=== PATIENT | female | born 1990 | race Caucasian/White ===

== ENCOUNTER → 2018-10-08 08:28 | Outpatient (CLI) | payer BC, SELFPAY ==
[2018-10-08 10:42] LABS: Hemoglobin A1c 5.7 % (4.2-6.3)
[2018-10-08 11:07] LABS: Ferritin 51 ng/mL (8-252); Thyroid Stim Hormone (TSH) 1.65 uIU/mL (0.358-3.74); Vitamin B12 739 pg/mL (211-911)
== END ==
DX: E03.9 Hypothyroidism, unspecified (principal); E61.1 Iron deficiency; R73.01 Impaired fasting glucose; E53.8 Deficiency of other specified B group vitamins
CPT/HCPCS: 36415; 82607; 82728; 83036; 83921; 84443

== ENCOUNTER → 2019-05-05 | Outpatient (CLI) | payer BC, SELFPAY ==
[2019-05-05 11:21] LABS: Hemoglobin A1c 5.1 % (4.2-6.3)
[2019-05-05 11:40] LABS: Ferritin 57 ng/mL (8-252); Thyroid Stim Hormone (TSH) 1.26 uIU/mL (0.358-3.74)
== END | disposition home or self-care (01) ==
LOC: LAB 10:26
DX: E61.1 Iron deficiency (principal); R73.01 Impaired fasting glucose; E03.9 Hypothyroidism, unspecified; N93.8 Other specified abnormal uterine and vaginal bleeding
CPT/HCPCS: 36415; 82728; 83036; 84443

== ENCOUNTER → 2024-11-17 | Outpatient (CLI) | payer BC, SELFPAY ==
[2024-11-17 08:23] LABS: Glucose 75GTT - Fasting 97 mg/dL (70-99)
[2024-11-17 10:34] LABS: Glucose 75GTT - 60 minutes 118 mg/dL (100-160)
[2024-11-17 10:35] LABS: Glucose 75GTT - 30 minutes 136 mg/dL (100-160)
[2024-11-17 11:15] LABS: Glucose 75GTT - 120 minutes 118 mg/dL (70-140)
[2024-11-18 06:20] LABS: Insulin Level 42.5 uIU/mL (2.6-24.9)
[2024-11-18 06:20] LABS: Insulin Level 40.6 uIU/mL (2.6-24.9); PROLACTIN 6.5 ng/mL (4.8-33.4)
[2024-11-18 08:09] LABS: Insulin Level 52.2 uIU/mL (2.6-24.9); PROLACTIN 8.6 ng/mL (4.8-33.4)
== END | disposition home or self-care (01) ==
LOC: LAB.FUTURE 07:10 → LAB 07:13
PROVIDERS: Referring Provider Obstetrics & Gynecology; Visit Provider Obstetrics & Gynecology
DX: E28.1 Androgen excess (principal); N96 Recurrent pregnancy loss; E03.8 Other specified hypothyroidism; R73.09 Other abnormal glucose
CPT/HCPCS: 36415; 82951; 82952; 83525; 84146